=== PATIENT | male | born 1985 | race Caucasian/White ===

== ENCOUNTER → 2018-10-20 11:31 | Outpatient (CLI) | payer OTHER, SELFPAY ==
[2018-10-20 12:10] LABS: Urine Amphetamines Negative (Negative); Urine Barbiturates Negative (Negative); Urine Benzodiazepines Negative (Negative); Urine Cocaine Negative (Negative); Urine MDMA Negative (Negative); Urine Methadone Negative (Negative); Urine Methamphetamines Negative (Negative); Urine Morphine/Opi cutoff 2000 Negative (Negative); Urine Oxycodone Negative (Negative); Urine Phencyclidine Negative (Negative); Urine Tetrahydrocannabinol Negative (Negative); Urine Tricyclic Antidepressant Negative (Negative)
== END ==
PROVIDERS: Visit Provider Family Medicine Sleep Medicine
DX: F51.01 Primary insomnia (principal); G47.00 Insomnia, unspecified; G47.19 Other hypersomnia; G47.33 Obstructive sleep apnea (adult) (pediatric); Z87.898 Personal history of other specified conditions
CPT/HCPCS: 80305

== ENCOUNTER 2019-04-21 06:55 | Emergency (ER) | payer OTHER, SELFPAY ==
[2019-04-21 07:00] VITALS: BP 135/89; BP 142/88; PULSE 123; PULSE 128; RESP 33; TEMP 39.3; O2SAT 98; BMI 34.9
--- NOTE | 2019-04-21 07:04 | DI.RAD.S_ITS ---
PROCEDURE: XR CHEST 2V INDICATIONS: SOB, fever, shakes TECHNIQUE: 2 views of the chest were acquired. COMPARISON: None. FINDINGS: Surgical changes and devices: None. Lungs and pleura: Lungs are difficult to accurately assess due to relatively prominent reduced inspiratory volume. No pleural effusions or pneumothorax. Mediastinum: Mediastinal contours are normal. Heart size is normal. Bones and chest wall: No suspicious bony abnormalities. Soft tissues appear unremarkable. IMPRESSION: Reduced inspiratory volume, no definite pneumonia found. Dictated by: Jay Cano M.D. on 04/21/2019 at 7:36 Approved by: Jay Cano M.D. on 04/21/2019 at 7:37
--- NOTE | 2019-04-21 07:23 | ED_ITS ---
HPI - Fever General Chief Complaint: Fever Stated Complaint: high fever/aches and pains Time Seen by Provider: 04/21/19 06:58 Source: patient Mode of arrival: Family Vehicle Limitations: no limitations History of Present Illness HPI Narrative: 33-year-old male daily smoker presents with his in the chief complaint of fever, body aches chills and a dry hacking cough since . His maximum temperature is 103? measured orally at home. He has had some vague headache and sore throat with some nasal congestion. He denies nausea, vomiting or diarrhea nor any abdominal pain or urinary complaints. He did recently travel to [place] and sat next to someone with upper respiratory complaints similar to this. MD complaint: fever Onset (ago): day(s) Temperature Source: oral Context: sick contacts Associated symptoms: chills, myalgias, headache, rhinorrhea, nasal congestion, sore throat and cough Relieving factors: nothing Exacerbating factors: nothing Treatments prior to arrival fever: acetaminophen and ibuprofen Related Data Home Medications Medication Instructions Recorded Confirmed omeprazole 20 mg capsule,delayed 40 mg PO DAILY 08/18/17 11/01/18 release Resmed Airsense 10 CPAP #1 ea 10/05/18 11/01/18 Previous Rx's Medication Instructions Recorded ketorolac 10 mg PO Q6H PRN #14 tab 04/21/19 oseltamivir [Tamiflu] 75 mg PO BID 5 Days #10 cap 04/21/19 Allergies Allergy/AdvReac Type Severity Reaction Status Date / Time No Known Drug Allergies Allergy Verified 11/01/18 09:55 Review of Systems Constitutional Constitutional: Reports chills, Denies fatigue, Reports fever(s), Denies frequent falls, Denies lethargy and Denies weakness Eyes Eyes: Denies change in vision, Denies eye discharge, Denies irritation and Denies loss of vision ENT Ears, Nose, Mouth, and Throat: Denies change in voice, Denies dizziness, Denies neck pain, Reports sore throat and Denies throat swelling Cardiovascular Cardiovascular: Denies chest pain, Denies irregular heart rhythm, Denies lightheadedness, Denies palpitations, Denies dyspnea, Denies dyspnea on exertion and Denies orthopnea Respiratory Respiratory: Reports cough, Denies dyspnea, Denies dyspnea on exertion and Denies wheezing Gastrointestinal Gastrointestinal: Denies abdominal pain, Denies change in bowel habits, Denies diarrhea, Denies nausea and Denies vomiting Genitourinary Genitourinary: Denies hematuria, Denies flank pain, Denies urinary incontinence and Denies urinary urgency Musculoskeletal Musculoskeletal: Denies back pain, Denies muscle weakness, Denies neck pain, Denies numbness and Denies tingling Integumentary/Breasts Skin/Breast: Denies pruritus, Denies erythema, Denies rash and Denies wounds Neurologic Neurologic: Denies behavioral changes, Denies confusion, Denies dizziness, Denies frequent falls, Denies loss of vision, Denies numbness, Denies tingling and Denies weakness Psychiatric Psychiatric: Denies anxiety, Denies behavioral changes, Denies confusion, Denies depression, Denies homicidal ideation and Denies suicidal ideation Endocrine Endocrine: Denies fatigue, Denies flushing and Denies palpitations Hematologic/Lymphatic Hematologic/Lymphatic: Denies easy bruising Allergic/Immunologic Allergic/Immunologic: Denies urticaria, Denies throat swelling and Denies wheezing Patient History Social History Smoking Status: Current every day smoker alcohol intake: current Smoking Status: Current every day smoker alcohol intake frequency: a few times a month Substance Use Type: does not use Exam Narrative Exam Narrative: GENERAL: [33] year old patient appears stated age. Well- nourished, well-developed patient, in mild distress. Obviously feeling unwell, the occasional dry hacking cough HEAD: Atraumatic. Normocephalic. EYES: Pupils equal round and reactive. Extraocular motions intact. No scleral icterus. No injection or drainage. ENT: Nose without bleeding, purulent drainage. Throat without erythema, tonsillar hypertrophy or exudate. Airway patent. NECK: Trachea midline. Non tender CARDIOVASCULAR: Regular rate and rhythm without murmurs, gallops, or rubs. RESPIRATORY: Clear to auscultation. Breath sounds equal bilaterally. No wheezes, rales, or rhonchi. GASTROINTESTINAL: Abdomen soft, non-tender, nondistended. EXTREMITIES: No edema or joint tenderness. BACK: Nontender without deformity or crepitance. No flank tenderness. NEURO: AOx3. SKIN: No rash or erythema of visible areas Initial Vital Signs Initial Vital Signs: Vital Signs Temperature 102.8 F H 04/21/19 07:00 Pulse Rate 128 H 04/21/19 07:00 Respiratory Rate 33 H 04/21/19 07:00 Blood Pressure 135/89 04/21/19 07:00 Pulse Oximetry 98 04/21/19 07:00 Course Orders Ordered: Discontinued Medications Sodium Chloride (Normal Saline 0.9%) 1,000 mls @ 1,000 mls/hr IV BOLUS ONE Stop: 04/21/19 08:02 Last Infusion: 04/21/19 09:16 Dose: 0 mls/hr Documented by: Admin: 04/21/19 08:01 Dose: 1,000 mls/hr Documented by: ISRAEL Ketorolac Tromethamine (Toradol) 15 mg IV NOW ONE Stop: 04/21/19 07:04 Last Admin: 04/21/19 08:00 Dose: 15 mg Documented by: ISRAEL Oseltamivir Phosphate (Tamiflu) 75 mg PO NOW ONE Stop: 04/21/19 07:49 Last Admin: 04/21/19 08:01 Dose: 75 mg Documented by: ISRAEL Vital Signs Vital signs: Vital Signs - 8 hr 04/21/19 07:00 04/21/19 07:30 Temperature 102.8 F H Pulse Rate 128 H 118 H Respiratory Rate 33 H 39 H Blood Pressure 142/88 H Blood Pressure [Left Arm] 135/80 Pulse Oximetry 98 98 MDM - Fever Lab Data Result diagrams: 04/21/19 08:05 04/21/19 08:05 Labs: Lab Results 04/21/19 04/21/19 04/21/19 Range/Units 07:00 08:05 08:05 WBC 4.8 (4.5-11.0) X10^3/uL RBC 4.80 (4.5-5.9) X10^6/uL Hgb 14.9 (13.5-17.5) g/dL Hct 42.4 (41-53) % MCV 88.3 (80-100) fL MCH 31.1 (26-34) PG MCHC 35.2 (30-36) % RDW 12.9 (11.6-14.8) % Plt Count 143 L (150-400) X10^3/uL Neut % (Auto) 80.5 H (50-75) % Lymph % (Auto) 7.6 L (25-40) % [place] % (Auto) 11.5 (3-14) % Eos % (Auto) 0.2 L (2-4) % Baso % (Auto) 0.2 (0-2) % Neut # (Auto) 3900 (1830-5738) /uL Lymph # (Auto) 400 L (2589-8492) /uL [place] # (Auto) 600 (0-900) /uL Eos # (Auto) 0 (0-450) /uL Baso # (Auto) 0 (0-100) /uL Sodium 140 (137-145) mmol/L Potassium 4.3 (3.4-5.1) mmol/L Chloride 102 (98-107) mmol/L Carbon Dioxide 27 (22-32) mmol/L BUN 11 (9-20) mg/dL Creatinine 1.00 (0.66-1.25) mg/dL Estimated GFR > 60.0 (>60) mL/min BUN/Creatinine Ratio 11.0 (6-22) Glucose 109 H (70-100) mg/dL Lactate (0.7-2.1) mmol/L Calcium 9.6 (8.4-10.2) mg/dL Procalcitonin (<0.5) ng/mL Influenza A (RT-PCR) Flu a positive H (NEGATIVE) Influenza B (RT-PCR) Flu b negative (NEGATIVE) 04/21/19 04/21/19 Range/Units 08:05 08:05 WBC (4.5-11.0) X10^3/uL RBC (4.5-5.9) X10^6/uL Hgb (13.5-17.5) g/dL Hct (41-53) % MCV (80-100) fL MCH (26-34) PG MCHC (30-36) % RDW (11.6-14.8) % Plt Count (150-400) X10^3/uL Neut % (Auto) (50-75) % Lymph % (Auto) (25-40) % [place] % (Auto) (3-14) % Eos % (Auto) (2-4) % Baso % (Auto) (0-2) % Neut # (Auto) (3135-5825) /uL Lymph # (Auto) (8415-1050) /uL [place] # (Auto) (0-900) /uL Eos # (Auto) (0-450) /uL Baso # (Auto) (0-100) /uL Sodium (137-145) mmol/L Potassium (3.4-5.1) mmol/L Chloride (98-107) mmol/L Carbon Dioxide (22-32) mmol/L BUN (9-20) mg/dL Creatinine (0.66-1.25) mg/dL Estimated GFR (>60) mL/min BUN/Creatinine Ratio (6-22) Glucose (70-100) mg/dL Lactate 1.2 (0.7-2.1) mmol/L Calcium (8.4-10.2) mg/dL Procalcitonin 0.07 (<0.5) ng/mL Influenza A (RT-PCR) (NEGATIVE) Influenza B (RT-PCR) (NEGATIVE) Discharge Plan Departure Patient Disposition: Home Clinical Impression: Flu Discharge Date/Time: 04/21/19 09:17 Instructions: DI for Influenza -- Adult Activity Restrictions/Additional Instructions: *You have been diagnosed with [influenza a] *What to do: *Take medications as directed *Follow up with your primary care provider in 2-3 days, call for an appointment. Let them know you were seen in the Emergency Department and that we ask that you be seen in follow up *Return to ER if you should have any new, worsening or concerning symptoms Prescriptions: New ketorolac 10 mg tablet 10 mg PO Q6H PRN (Reason: pain) Qty: 14 RF: 0 oseltamivir [Tamiflu] 75 mg capsule 75 mg PO BID 5 Days Qty: 10 RF: 0 No Action omeprazole 20 mg capsule,delayed release(DR/EC) 40 mg PO DAILY RF: 0 (DME) Resmed Airsense 10 CPAP Qty: 1 RF: 0
[2019-04-21 07:30] VITALS: BP 135/80; PULSE 118; RESP 39; O2SAT 98
[2019-04-21 07:36] LABS: Influenza A - CEPHEID Flu A POSITIVE (NEGATIVE); Influenza B - CEPHEID Flu B NEGATIVE (NEGATIVE)
[2019-04-21 08:00] VITALS: BP 144/77; PULSE 118; RESP 41; O2SAT 99
[2019-04-21] MEDS: KETOROLAC 60 MG/2 ML VIAL 15 MG IV (08:00)
[2019-04-21] MEDS: OSELTAMIVIR 75 MG CAPSULE PO (08:01)
[2019-04-21] MEDS: SODIUM CHLORIDE 0.9% 1,000 ML 1000 ML IV (08:01)
[2019-04-21 08:17] LABS: Add Manual Diff / Slide Review NO; Basophils Absolute Auto 0 /uL (0-100); Basophils Percent Auto 0.2 % (0-2); Eosinophils Absolute Auto 0 /uL (0-450); Eosinophils Percent Auto 0.2 % (2-4); Hematocrit 42.4 % (41-53); Hemoglobin 14.9 g/dL (13.5-17.5); Lymphocytes Absolute Auto 400 /uL (1100-4500); Lymphocytes Percent Auto 7.6 % (25-40); Mean Corpuscular HGB Conc 35.2 % (30-36); Mean Corpuscular Hemoglobin 31.1 PG (26-34); Mean Corpuscular Volume 88.3 fL (80-100); Monocytes Absolute Auto 600 /uL (0-900); Monocytes Percent Auto 11.5 % (3-14); Neutrophils Absolute Auto 3900 /uL (1500-7000); Neutrophils Percent Auto 80.5 % (50-75); Platelet Count 143 X10^3/uL (150-400); Red Cell Distribution Width 12.9 % (11.6-14.8); White Blood Cell Count 4.8 X10^3/uL (4.5-11.0)
[2019-04-21 08:27] LABS: Lactate (Lactic Acid) 1.2 mmol/L (0.7-2.1)
[2019-04-21 08:28] LABS: Blood Urea Nitrogen 11 mg/dL (9-20); Calcium 9.6 mg/dL (8.4-10.2); Carbon Dioxide 27 mmol/L (22-32); Chloride 102 mmol/L (98-107); Estimated Glomerular Filt Rate > 60.0 mL/min (>60); Glucose 109 mg/dL (70-100); HEMOLYSIS 15 (0-50); Potassium 4.3 mmol/L (3.4-5.1); Sodium 140 mmol/L (137-145)
[2019-04-21 08:30] VITALS: BP 125/72; PULSE 123; RESP 32; O2SAT 97
[2019-04-21 08:42] VITALS: TEMP 38.5
--- NOTE | 2019-04-21 08:44 | PC.NURSE ---
reports coughing for 2 days, denies nausea or vomiting, onset of right hip pain last night, denies falling or injury and able to bear wt.
[2019-04-21 08:54] LABS: Procalcitonin 0.07 ng/mL (<0.5)
[2019-04-21 09:16] VITALS: TEMP 38.3
== END 2019-04-21 09:17 | disposition home or self-care (01) ==
PROVIDERS: Emergency Medicine; Emergency Provider Emergency Medicine
DX: J10.1 Influenza due to other identified influenza virus with other respiratory manifestations (principal)
CPT/HCPCS: 36415; 71046; 80048; 83605; 84145; 85025; 87502; 96361; 96374; 99284; J1885

== ENCOUNTER 2022-03-28 09:23 | Emergency (ER) | payer OTHER, SELFPAY ==
[2022-03-28 09:32] VITALS: BP 132/91; PULSE 68; RESP 18; TEMP 36.6; O2SAT 98; BMI 34.9
--- NOTE | 2022-03-28 09:45 | DI.RAD.S_ITS ---
PROCEDURE: XR LUMBAR SPINE 2-3V INDICATIONS: injury lifting/moving TECHNIQUE: 3 views of the lumbar spine were acquired. COMPARISON: [facility], CR, XR SACRUM COCCYX MIN 2V, 03/28/2022, 9:52. FINDINGS: Bones: 5 [id number] vertebrae are present. There is normal bony alignment. Chronic appearing anterior wedge deformity can be seen of L1, with 10% loss of height anteriorly. No acute appearing vertebral body compression fractures. No suspicious bony lesions. There is moderate disc space narrowing seen at L5-S1. The disc heights otherwise appear well-preserved. Mild lower lumbar spine facet arthropathy is seen. Soft tissues: Overlying bowel gas pattern is normal. No suspicious soft tissue calcifications. IMPRESSION: No acute plain film abnormality can be seen. Focal L5-S1 degenerative change. Remote appearing L1 anterior wedge deformity. If it would be helpful for clinical management decision making, please consider a dedicated, scheduled lumbar spine MRI for further evaluation (assuming that there is no contraindication). Dictated by: Remington Coppola M.D. on 03/28/2022 at 9:09 Approved by: Remington Coppola M.D. on 03/28/2022 at 9:10
--- NOTE | 2022-03-28 09:45 | DI.RAD.S_ITS ---
PROCEDURE: XR SACRUM COCCYX MIN 2V INDICATIONS: injury and pain lifting/moving TECHNIQUE: 3 views of the sacrum and coccyx acquired. COMPARISON: [facility], CR, XR LUMBAR SPINE 2-3V, 03/28/2022, 9:52. FINDINGS: Bones: No fractures or dislocations. No suspicious bony lesions. Lower lumbar spine degenerative changes are seen. Soft tissues: Visualized bowel gas pattern is normal. No suspicious soft tissue densities. IMPRESSION: No significant plain film abnormality of the sacrum or coccyx can be seen. Dictated by: Remington Coppola M.D. on 03/28/2022 at 9:11 Approved by: Remington Coppola M.D. on 03/28/2022 at 9:11
--- NOTE | 2022-03-28 11:35 | ED.BACK ---
HPI - Back Pain/Injury General Chief Complaint: Back Pain/Injury Stated Complaint: back pain Time Seen by Provider: 03/28/22 11:30 Source: patient History of Present Illness HPI Narrative: Patient is a 36-year-old male no past medical history presenting today with back pain. 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 This morning when he got up severe back pain mostly on the left side kind of down into his buttock but not necessarily into his leg. No changes in bowel or bladder habits. He says this happened to him once years ago. He is not had any fever or other symptoms. He reports that he took ibuprofen x2 he said the 1st dose helped but not really the 2nd dose. Related Data Home Medications Medication Instructions Recorded Confirmed omeprazole 20 mg capsule,delayed 40 mg PO DAILY 08/18/17 11/01/18 release Resmed Airsense 10 CPAP #1 ea 10/05/18 11/01/18 Previous Rx's Medication Instructions Recorded ketorolac 10 mg tablet 10 mg PO Q6H PRN pain #14 tabs 04/21/19 Oral Appliance for mild ANGLE #1 ea 10/20/20 hydrocodone 5 mg-acetaminophen 325 1 tab PO Q6H PRN pain #10 tabs 03/28/22 mg tablet methocarbamol 750 mg tablet 750 mg PO Q8H PRN muscle spasm #14 03/28/22 tabs Allergies Allergy/AdvReac Type Severity Reaction Status Date / Time No Known Drug Allergies Allergy Verified 11/01/18 09:55 Review of Systems Review of Systems ROS Unobtainable: All systems reviewed & are unremarkable except as noted in HPI and below Patient History Medical History (Updated 03/28/22 @ 11:48 by Erin Jolly DO) Insomnia Obesity (BMI 30-39.9) Obstructive sleep apnea of adult Tobacco dependency Social History Smoking Status: Former smoker alcohol intake: current Smoking Status: Former smoker alcohol intake frequency: a few times a month Substance Use Type: does not use Exam Initial Vital Signs Initial Vital Signs: Vital Signs Temperature 98 F 03/28/22 09:32 Pulse Rate 68 03/28/22 09:32 Respiratory Rate 18 03/28/22 09:32 Blood Pressure 132/91 H 03/28/22 09:32 Pulse Oximetry 98 03/28/22 09:32 Oxygen Delivery Method 03/28/22 09:32 GENERAL: Alert 36-year-old male appears slightly uncomfortable CARDIOVASCULAR: peripheral pulses in tact, cap refill <2 sec RESPIRATORY: No respiratory distress, speaks in full sentences without difficulty BACK: No vertebral tenderness no step offs tender more left lower lumbar area and left buttock sensation in lower extremities equal and intact EXTREMITIES: Normal range of motion, no clubbing or edema. Neurovascularly intact NEUROLOGICAL: Cranial nerves II through XII grossly intact. Normal gait and speech. SKIN: Warm, dry, no petechiae, no rashes or lesions. Course Orders Ordered: ED Orders 03/28/22 09:45 XR lumbar spine 2-3V Stat XR sacrum coccyx min 2V Stat Discontinued Medications Diazepam (Diazepam 5 Mg Tablet) 5 mg PO NOW ONE Stop: 03/28/22 11:44 Last Admin: 03/28/22 11:58 Dose: 5 mg Documented By: JENNI Vital Signs Vital signs: Vital Signs - 8 hr 03/28/22 09:32 03/28/22 11:57 Temperature 98 F Pulse Rate 68 74 Respiratory Rate 18 16 Blood Pressure 132/91 H 135/78 Pulse Oximetry 98 98 Oxygen Delivery Method Room Air Room Air MDM - Back Pain/Injury Lab Data Labs: Urine Dip Bedside Urine Glucose Negative Bedside Urine Bilirubin - Negative Bedside Urine Ketone - Negative Urine Specific [place] 1.030 Bedside Urine Occult Blood - Negative Bedside Urine pH 6.0 Bedside Urine Protein - Negative Bedside Urine Urobilinogen - Negative Bedside Urine Nitrite - Negative Bedside Urine Leukocytes - Negative Esterase Imaging Data Extremity x-ray #1: Radiologist's Impression: XRay Report Signed Patient: Naren Goff MR#: [id number] : 1985 Acct:[id number] Age/Sex: 36 / M Date of Service: 03/28/22 Loc: ED Accession Number: [id number] ?? Procedure: XR lumbar spine 2-3V Ordering Provider: Erin Jolly D.O. PROCEDURE:? XR LUMBAR SPINE 2-3V ? INDICATIONS:? injury lifting/moving ? TECHNIQUE:? 3 views of the lumbar spine were acquired.? ? COMPARISON:? [facility], , XR SACRUM COCCYX MIN 2V, 03/28/2022, 9:52. ? FINDINGS:? ? Bones:? 5 [id number] vertebrae are present.? There is normal bony alignment.? Chronic appearing anterior wedge deformity can be seen of L1, with 10% loss of height anteriorly.? No acute appearing vertebral body compression fractures.? No suspicious bony lesions.? There is moderate disc space narrowing seen at L5-S1. The disc heights otherwise appear well-preserved.? Mild lower lumbar spine facet arthropathy is seen.? ? Soft tissues:? Overlying bowel gas pattern is normal.? No suspicious soft tissue calcifications.? ? ? IMPRESSION:? No acute plain film abnormality can be seen. ? Focal L5-S1 degenerative change. ? Remote appearing L1 anterior wedge deformity. ? If it would be helpful for clinical management decision making, please consider a dedicated, scheduled lumbar spine MRI for further evaluation (assuming that there is no contraindication).? ? Dictated by: Remington Coppola M.D. on 03/28/2022 at 9:09 ? ? Extremity x-ray #2: Radiologist's Impression: ent: Naren Goff MR#: [id number] : 1985 Acct:[id number] Age/Sex: 36 / M Date of Service: 03/28/22 Loc: ED Accession Number: [id number] ?? Procedure: XR sacrum coccyx min 2V Ordering Provider: Erin Jolly D.O. PROCEDURE:? XR SACRUM COCCYX MIN 2V ? INDICATIONS:? injury and pain lifting/moving ? TECHNIQUE:? 3 views of the sacrum and coccyx acquired.? ? COMPARISON:? [facility], , XR LUMBAR SPINE 2-3V, 03/28/2022, 9:52. ? FINDINGS:? ? Bones:? No fractures or dislocations.? No suspicious bony lesions.? Lower lumbar spine degenerative changes are seen. ? Soft tissues:? Visualized bowel gas pattern is normal.? No suspicious soft tissue densities.? IMPRESSION:? No significant plain film abnormality of the sacrum or coccyx can be seen.? ? Dictated by: Remington Coppola M.D. 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 Symptoms consistent with sciatic and acute lumbar strain. No red flag symptoms. No weakness or neurologic symptoms. MDM * differential diagnosis includes but not limited to: Lumbar strain disc herniation, cauda equina diskitis * Prior records reviewed: none * My lab interpretation: None * My imaging interpretation: X-rays negative * Clinical Decision Rules/Scores evaluated: * Independent discussions with: * Social Considerations: * Shared Decision Making: With and patient *Disposition: see below, along with detailed discharge instructions that have been reviewed with patient as well as indications for ED re-evaluation and additional outpatient follow up Discharge Plan Departure Patient Disposition: Home Clinical Impression: Back pain with sciatica Instructions: DI for Back Pain With Sciatica Activity Restrictions/Additional Instructions: *You have been diagnosed with back pain *What to do: Light activity no strenuous activity no lying ferny. Light walking no heavy lifting. Heating pad 20-30 minutes at a time. *Continue to take medications as directed Ibuprofen 600 mg every 6 hours if needed for [id number] pain Methocarbamol 750 mg every 8 hours needed for muscle relaxer [place] 1 tablet every 6 hours if needed for severe pain *Follow up with your primary care provider in 2-3 days or call [phone] *Return to ER if you should have increasing pain leg weakness changes in bowel or bladder habit or any new, worsening or concerning symptoms CONTROLLED SUBSTANCE DISCHARGE (Narcotoic/benzodiazepine/Flexeril/Phenergan) 1. You have been prescribed narcotic medications, it does have acetaminophen/Tylenol/paracetamol in it, DO NOT TAKE MORE THAN 4,00mg in 24 hours of Tylenol. TRAMADOL DOES NOT CONTAIN TYLENOL 2. Please understand that we cannot provide further refills of narcotics, benzodiazepines or controlled substances through the ED and her pain management will need to be through your provider. 3. While on these medications you cannot drive or operate heavy machinery. 4. You cannot sign legal documents or perform any duties such as this. 5. As long as you're taking opiate pain medications he should also be taking a stool softener such as Colace, Dulcolax, MiraLAX or prune juice, to help avoid constipation. Prescriptions: New hydrocodone-acetaminophen 5-325 mg tablet 1 tab PO Q6H PRN (Reason: pain) Qty: 10 0RF methocarbamol 750 mg tablet 750 mg PO Q8H PRN (Reason: muscle spasm) Qty: 14 0RF No Action ketorolac 10 mg tablet 10 mg PO Q6H PRN (Reason: pain) Qty: 14 0RF omeprazole 20 mg capsule,delayed release(DR/EC) 40 mg PO DAILY (DME) Oral Appliance for mild ANGEL See Rx Instructions .Route .MEDSUPPLY Qty: 1 0RF Rx Instructions: As directed (DME) Resmed Airsense 10 CPAP Qty: 1 Dose Instruction: As directed Label Comments: Pressure: 7-10 cmH2O DME: [facility] Rx Instructions: As directed Referrals: Porter Miranda MD [Primary Care Provider] - Stand Alone Forms: Patient Portal/API
[2022-03-28 11:57] VITALS: BP 135/78; PULSE 74; RESP 16; O2SAT 98
[2022-03-28] MEDS: diazePAM 5 MG TABLET PO (11:58)
== END 2022-03-28 12:13 | disposition home or self-care (01) ==
PROVIDERS: Emergency Provider Emergency Medicine
DX: M54.40 Lumbago with sciatica, unspecified side (principal)
CPT/HCPCS: 72100; 72220; 81003; 99283